=== PATIENT | female | born 1965 | race Caucasian/White ===

== ENCOUNTER 2020-01-08 17:30 | Inpatient (IN) | payer OTHER ==
[~2020-01-08] VITALS: Ht 172.7 cm; Wt 68.0 kg
[~2020-01-08 17:30] MED LIST: CELEXA10 MG PO; ESTROGEN-METHY1 EAC2 PO; MACROBID 100 M100 M1 PO; PYRIDIUM200 MG PO
[2020-01-08 17:43] VITALS: BP 112/56
[2020-01-08] MEDS ORDERED: MECLIZINE HCL25 M1 PO (17:46)
[2020-01-08 17:58] LABS: ABSOLUTE BASOPHILS 0.1 thou/uL (0.0-0.2); ABSOLUTE EOSINOPHILS 0.1 thou/uL (0.0-0.7); ABSOLUTE LYMPHOCYTES 1.8 thou/uL (0.8-5.3); ABSOLUTE MONOCYTES 0.5 thou/uL (0.0-1.2); ABSOLUTE NEUTROPHILS 4.5 thou/uL (1.6-8.1); BASOPHILS 1.2 %; EOSINOPHILS 1.2 %; HEMATOCRIT 41.6 % (37.0-47.0); HEMOGLOBIN 14.2 gm/dL (12.0-15.0); LYMPHOCYTES 25.7 %; MCH 31.5 pg (26.0-34.0); MCHC 34.1 g/dL (28.0-37.0); MCV 92.3 fL (80.0-100.0); MONOCYTES 7.6 %; MPV 7.2 fl. (7.2-11.1); NUCLEATED RBCS 0 /100WBC; PLATELET COUNT* 344 thou/uL (150-400); POLYS 64.3 %; RBC 4.51 mil/uL (4.20-5.00); RDW-CV 13.6 % (10.5-14.5); WBC 7.1 thou/uL (4.0-11.0)
[2020-01-08 18:18] LABS: CALCIUM 8.9 mg/dL (8.5-10.1); POTASSIUM 4.1 mmol/L (3.5-5.1)
[2020-01-08 18:23] LABS: ALBUMIN 3.8 g/dL (3.4-5.0); TOTAL BILIRUBIN 0.3 mg/dL (<0.1-1.0); TOTAL PROTEIN 7.5 g/dL (6.4-8.2)
[2020-01-09] VITALS (8 sets, daily range): BP systolic 81–120; BP diastolic 34–73
--- NOTE | 2020-01-09 10:11 | EKG ---
[place] [address] ELECTROCARDIOGRAM REPORT Name: BLASGRUPO Skaggs Room: [place] [address] ADM IN [facility]#: [id number] Admission: 01/08/20 Attend Phys: Terrell Johnson Discharge: Date of : 67 Date of Service: 01/08/20 184 Report #: [id number] THIS REPORT FOR: //name// [facility] ED Test Date: 2020-01-08 Test Time: 18:41:36 Pat Name: GRUPO ODONNELL Department: Room: [facility] Gender: F Electronic Design Engineer: [facility] : 1965 Requested By: Daniel Dos Santos Order Number: [id number] MD: Hussain Burton Measurements Intervals [place] Rate: 61 P: 69 AK: 168 QRS: 64 QRSD: 105 T: 66 QT: 427 QTc: 430 Interpretive Statements Sinus rhythm Compared to ECG 03/05/2008 20:33:44 Sinus arrhythmia no longer present Incomplete right bundle-branch block no longer present Electronically Signed On 01-09-2020 10:10:18 BLANKET WEAVER by Hussain Burton [email or web address] <ELECTRONICALLY SIGNED> By: Hussain Burton MD, FAC 01/09/20 1010 1841 1841 Hussain Burton MD, [facility] /EPI
[2020-01-09 10:52] LABS: ALBUMIN 3.2 g/dL (3.4-5.0); ALKALINE PHOSPHATASE 63 U/L (46-116); ANION GAP 5 mmol/L (7-16); BUN 9 mg/dL (7-18); CALCIUM 7.7 mg/dL (8.5-10.1); CHLORIDE 106 mmol/L (98-107); CHOLESTEROL 226 mg/dL (<200); CO2 30 mmol/L (21-32); GLUCOSE 70 mg/dL (70-99); HDL CHOLESTEROL 59 mg/dL (>40); LDL CHOLESTEROL 155 mg/dL (<100); POTASSIUM 3.7 mmol/L (3.5-5.1); SERUM ASSESSMENT Clear; SGOT 19 U/L (15-37); SGPT 42 U/L (30-65); SODIUM 141 mmol/L (136-145); TC:HDL 3.8 Ratio (Not establshd); TOTAL BILIRUBIN 0.4 mg/dL (<0.1-1.0); TOTAL PROTEIN 6.4 g/dL (6.4-8.2); TRIGLYCERIDE 60 mg/dL (<150); VLDL 12 mg/dL (<40)
--- NOTE | 2020-01-09 14:03 | 2DMMODE ---
[place] [address] 2 D/M-MODE ECHOCARDIOGRAM Name: GRUPO ODONNELL Sharifa Room: [place] [address] ADM IN R#: [id number] Admission: 01/08/20 Attend Phys: Terrell Johnson Discharge: Date of : 67 Date of Service: 01/09/20 1357 Report #: [id number] THIS REPORT FOR: cc: Shaquille Dooley MD, Dean L. MD Blick,Hussain Cage MD [facility] ~ APPROVED REPORT Study performed: 01/09/2020 12:06:43 EXAM: Comprehensive 2D, Doppler, and color-flow Echocardiogram Patient Location: In-Patient Room #: er Status: routine BSA: 1.81 HR: 63 bpm BP: 106/77 mmHg Rhythm: NSR Other Information Study Quality: Good Indications AMS 2D Dimensions IVSd: 10.40 (7-11mm) LVOT Diam: 18.66 (18-24mm) LVDd: 41.89 mm PWd: 8.02 (7-11mm) LVDs: 27.75 (25-40mm) Aortic Root: 27.51 mm Volumes Left Atrial Volume (Systole) LA ESV Index: 22.00 mL/m2 Aortic Valve AoV Peak Raad.: 1.27 m/s AO Peak Gr.: 6.46 mmHg LVOT Max P.68 mmHg AO Mean Gr.: 4.29 mmHg LVOT Mean P.44 mmHg LVOT Max V: 1.08 m/s AO V2 VTI: 30.22 cm LVOT Mean V: 0.74 m/s TABATHA (VTI): 2.14 cm2 LVOT V1 VTI: 23.70 [place] [address] 2 D/M-MODE ECHOCARDIOGRAM Name: GRUPO ODONNELL Room: [address] IN ..#: [id number] Admission: 01/08/20 Attend Phys: Terrell Johnson Discharge: Date of : 67 Date of Service: 01/09/20 1357 Report #: [id number] Mitral Valve E/A Ratio: 1.27 MV Decel. Time: 166.95 ms MV E Max Raad.: 0.92 m/s MV PHT: 48.42 ms MVA (PHT): 4.54 cm2 TDI E/Lateral E': 6.57 E/Medial E': 7.08 Medial E' Raad.: 0.13 m/s Lateral E' Raad.: 0.14 m/s Pulmonary Valve PV Peak Raad.: 0.80 m/s PV Peak Gr.: 2.56 mmHg Left Ventricle The left ventricle is normal size. There is normal LV segmental wall motion. There is normal left ventricular wall thickness. Left ventricular systolic function is normal. The left ventricular ejection fraction is within the normal range. LVEF is 65-70%. The left ventricular diastolic function is normal. Right Ventricle The right ventricle is normal size. The right ventricular systolic function is normal. Atria The left atrium size is normal. The right atrium size is normal. Aortic Valve The aortic valve is normal in structure. No aortic regurgitation is present. There is no aortic valvular stenosis. Mitral Valve The mitral valve is normal in structure. There is no mitral valve regurgitation noted. No evidence of mitral valve stenosis. Tricuspid Valve The tricuspid valve is normal in structure. Trace tricuspid regurgitation. Pulmonic Valve Pulmonic valve is not well visualized. There is no [place]mon[place] [address] 2 D/M-MODE ECHOCARDIOGRAM Name: ODONNELLGRUPO Skaggs Room: [address] IN [facility]#: [id number] Admission: 01/08/20 Attend Phys: Terrell Johnson Discharge: Date of : 67 Date of Service: 01/09/20 1357 Report #: [id number] Great Vessels The aortic root is normal in size. IVC is normal in size and collapses >50% with inspiration. Pericardium There is no pericardial effusion. <Conclusion> Left ventricular systolic function is normal. The left ventricular ejection fraction is within the normal range. <ELECTRONICALLY SIGNED> By: Hussain Burton MD, FAC 01/09/20 1357 1357 1357 Hussain Burton MD, FAC /INF
--- NOTE | 2020-01-09 15:32 | NUR ---
REPORT CALLED TO ADAM VILLAFUERTE. MRI HERE TO TAKE PATIENT, ATIVAN GIVEN PRIOR. ALL PATIENTS BELONGINGS AND IVF TRANSFERRED TO ROOM 108.
[2020-01-10 02:07] LABS: GLYCOHEMOGLOBIN (HGB A1C) 5.2 % (4.8-5.6)
--- NOTE | 2020-01-10 04:50 | NUR ---
ASSUMED PT CARE AT 1930. PT ALERT AND ORIENTED X4. DENIES PAIN. VSS. PT DENIES BEING DIZZY OR LIGHT HEADED, EAGER TO HAVE IV COVERED SO SHE CAN TAKE A SHOWER. PT HAD TUMMY TUCK AND EYELIFT RECENTLY, STERISTRIPS TO ABDOMEN. NIH SCORE ZERO. PIV INFUSING TO RIGHT AC. PT ANTICIPATING DISCHARGE HOME TODAY. CALL LIGHT IN REACH. HOURLY ROUNDING IN PROGRESS, WILL CONTINUE TO MONITOR.
[2020-01-10 08:45] VITALS: BP 106/48
[2020-01-10 10:57] VITALS: BP 106/48
--- NOTE | 2020-01-10 11:29 | NUR ---
I ASSUMED CARE OF THE PATIENT AT 0700. SHE IS ALERT AND ORIENTED X4 AND IS UP AD SVITLANA. BED IS IN THE LOW LOCKED POSITION AND CALL LIGHT IS IN REACH. HOURLY ROUNDING IS COMPLETED AND PATIENT NEEDS ARE MET. PAIN IS DENIED. SHE IS PROGRESSING TOWARDS HER GOALS. STERI STRIPS ARE C/D/I ON HER TUMMY FROM A PRIOR PROCEDURE. NIH IS ZERO. HAS ALSO D/C'D FROM THE ICU AND THEY LEFT TO GO HOME TOGETHER WITH THEIR DAUGHTER AT 1130 AND UNDERSTANDS FOLLOW UP. NO SCRIPTS GIVEN.
--- NOTE | 2020-01-10 12:25 | NUR ---
PT ORDERS RECEIVED AND ACKNOWLEDGED. ARRIVED AT PT'S ROOM AT 1120. PT PREPARING FOR DISCHARGE TO HOME. PT DENIES ANY DIZZINESS AND DOES NOT FEEL PT SERVICES ARE INDICATED AT THIS TIME. PT AWARE OF COMMUNITY RESOURCES AVAILABLE IF DIZZINESS RECURS. WILL DISCHARGE PT SERVICES PER PT REQUEST.
== END 2020-01-10 11:33 | disposition home or self-care (01) | DRG 300 ==
LOC: M.ERS 17:30 → M.TBA-ER 19:19 → M.ORTHSURG 01-09 15:12
PROVIDERS: Physician Assistant; ADMIT Internal Medicine
DX: I77.3 Arterial fibromuscular dysplasia (principal); E44.0 Moderate protein-calorie malnutrition; E78.5 Hyperlipidemia, unspecified; Z90.710 Acquired absence of both cervix and uterus; Z83.3 Family history of diabetes mellitus; Z82.49 Family history of ischemic heart disease and other diseases of the circulatory system; Z68.22 Body mass index [BMI] 22.0-22.9, adult; Z79.82 Long term (current) use of aspirin; Z79.899 Other long term (current) drug therapy; Z90.49 Acquired absence of other specified parts of digestive tract